=== PATIENT | female | born 1985 | race Caucasian/White ===

== ENCOUNTER 2016-07-19 10:40 | Inpatient (IN) | payer BC ==
[~2016-07-19] VITALS: Ht 162.7 cm; Wt 110.0 kg
[~2016-07-19 10:40] MED LIST: MOTRIN 600600 MG/TAB PO; NO HOME MEDICATIONS; PERCOCET 325 MG1 TA2 PO; PRENATAL1 TA1 PO; TESSALON PERLE200 MG PO; TYLENOL 325MG325 MG PO; TYLENOL COLD HE1 TAB PO; ZITHROMAX Z PA250 MG PO; [UNRECOGNIZED DRUG - OTHER]
[2016-09-01] VITALS (17 sets, daily range): BP systolic 91–114; BP diastolic 37–66; PULSE 65–98; TEMP 97.4–98.6
[2016-09-01 11:18] LABS: MEAN CELL VOLUME 91 fl (80.0-100.0); MEAN CORPUSCULAR HGB CONC 33 g/dl (33.0-37.0); MEAN PLATELET VOLUME 11.8 fl (7.4-10.4); PLATELET COUNT 200 K/mm3 (130-400); RED BLOOD COUNT 3.31 M/mm3 (4.10-5.30); REDCELL DISTRIBUTION WIDTH-CV 15.5 % (11.5-14.5); WHITE BLOOD COUNT 7.8 K/mm3 (4.8-10.8)
[2016-09-01 11:33] LABS: HEMATOCRIT 30.2 % (37.0-47.0); MEAN CORPUSCULAR HEMOGLOBIN 30 pg (27.0-31.0)
[2016-09-01 11:34] LABS: ADD PATHOLOGY DIFF REVIEW NO
[2016-09-01 12:09] LABS: BAND 18 % (0-10); EOSINOPHIL 2 % (0-4); NEUTROPHILS 54 % (42.0-75.2); PLATELET ESTIMATE NORMAL (NORMAL); TOTAL CELLS COUNTED 100
[2016-09-02] VITALS: BP 113/58; PULSE 70; TEMP 98
[2016-09-02 06:30] VITALS: BP 111/61; PULSE 74; TEMP 97.4
[2016-09-02] MEDS ORDERED: IBU800 M1 PO (07:37)
[2016-09-02] MEDS ORDERED: PERCOCET 325 MG1 TA2 PO (07:37)
[2016-09-02 07:47] LABS: BASO % 0.2 % (0.0-2.0); EOS # 0.1 (0.0-0.7); EOS % 0.7 % (0-4.0); GRAN # 7.1 (1.4-6.5); GRAN % 67.6 % (42.2-75.2); LYMPH # 2.4 (1.2-3.4); LYMPH % 22.4 % (20.0-51.0); MEAN CELL VOLUME 93 fl (80.0-100.0); MEAN CORPUSCULAR HGB CONC 32 g/dl (33.0-37.0); MEAN PLATELET VOLUME 11.7 fl (7.4-10.4); MONO # 0.8 (0.1-0.6); PLATELET COUNT 201 K/mm3 (130-400); RED BLOOD COUNT 3.12 M/mm3 (4.10-5.30); REDCELL DISTRIBUTION WIDTH-CV 15.7 % (11.5-14.5); WHITE BLOOD COUNT 10.5 K/mm3 (4.8-10.8)
[2016-09-02 07:59] LABS: HEMOGLOBIN 9.2 g/dl (12.5-16.0); MEAN CORPUSCULAR HEMOGLOBIN 29 pg (27.0-31.0)
[2016-09-02 16:00] VITALS: BP 125/71; PULSE 71; TEMP 97.7
[2016-09-02 20:00] VITALS: BP 132/76; PULSE 86; TEMP 98
[2016-09-03 08:40] VITALS: BP 130/70; PULSE 86; TEMP 97.4
== END 2016-09-03 11:10 | disposition home or self-care (01) | DRG 766 ==
LOC: OB 09-01 10:01 → LDR 09-01 12:55 → OB 09-03 11:10 → LDRO 09-04 10:39 → EDSTATUS 09-04 12:48
PROVIDERS: Student in an Organized Health Care Education/Training Program
PROC: 10D00Z1 Extraction of Products of Conception, Low, Open Approach (ICD-10-PCS; principal; 2016-09-01)
DX: O34.211 Maternal care for low transverse scar from previous cesarean delivery (principal); N85.8 Other specified noninflammatory disorders of uterus; Z3A.39 39 weeks gestation of pregnancy; Z37.0 Single live birth
CPT/HCPCS: J0690; J1100; J1885; J2270; J2370; J2405; J2550; J2590; J7120

== ENCOUNTER → 2022-06-30 | Outpatient (CLI) | payer OTHER ==
[~2022-06-30] VITALS: Ht 162.6 cm; Wt 112.0 kg
[~2022-06-30] MED LIST changes: +IBU800 M1 PO
[2022-06-30 12:53] VITALS: BP 131/79; PULSE 90; TEMP 97.7
[2022-06-30 14:05] VITALS: BP 107/78; PULSE 75
[2022-06-30 14:20] VITALS: BP 99/77; PULSE 76
[2022-06-30 14:35] VITALS: BP 109/73; PULSE 79
== END ==
LOC: COL.RAD 12:22
DX: M54.6 Pain in thoracic spine (principal)
CPT/HCPCS: J2250; J2704; J7120